=== PATIENT | female | born 1945 | race Caucasian/White ===

== ENCOUNTER 2020-04-24 07:46 | Emergency (ER) | payer MEDICARE ==
[2020-04-24 08:56] LABS: Absolute Lymphocytes (CBC) 3.1 K/uL (0.7-4.9); Basophils % 1.4 % (0-1.3); Hematocrit 39.2 % (36.0-45.0); Lymphocytes % 33.7 % (15.3-44.8); MPV 7.7 fL (7.6-11.3); RBC Red Blood Cell Count 4.36 M/uL (3.86-4.86)
[2020-04-24] MEDS ORDERED: ONDANSETRON 4 MG/2 ML VIAL ONE (09:17)
[2020-04-24] MEDS ORDERED: KETOROLAC 30 MG/ML INJ ONE (09:17)
[2020-04-24] MEDS ORDERED: dexAMETHasone 4 MG/ML VIAL ONE (09:17)
[2020-04-24 09:18] LABS: ALT/SGPT 21 U/L (12-78); AST/SGOT 18 U/L (15-37); Albumin 3.9 g/dL (3.4-5.0); Alkaline Phosphatase 90 U/L (45-117); BUN Blood Urea Nitrogen 14 mg/dL (7-18); Bicarbonate 27 mmol/L (21-32); Bilirubin Total 0.5 mg/dL (0.2-1.0); Glucose Level 99 mg/dL (74-106); Potassium 3.6 mmol/L (3.5-5.1); Protein, Total 8.4 g/dL (6.4-8.2); Sodium Level 141 mmol/L (136-145); Troponin I < 0.02 ng/mL (0.0-0.045)
[2020-04-24] MEDS ORDERED: NA CHLORIDE 0.9% 500 ML ONE (09:18)
--- NOTE | 2020-04-24 09:31 | ER ---
Nurse's Notes [facility] Name: Love Mooney Age: 74 yrs Sex: Female : 1945 Arrival Date: 04/24/2020 Time: 07:48 Bed 5 Private MD: Diagnosis: Dermatitis, unspecified;Pain in right shoulder;Strain of muscle and tendon of back wall of thorax;Strain of muscle and tendon of front wall of thorax Presentation: 04/24 07:54 Chief complaint: Patient states: multiple bites in scalp x 6 weeks. C/o itching and ss burning. R shoulder pain x 4 days. No known injury. Coronavirus screen: Client denies travel out of the [place] in the last 14 days. At this time, the client does not indicate any symptoms associated with coronavirus-19. Ebola Screen: Patient denies exposure to infectious person. Patient denies travel to an Ebola-affected area in the 21 days before illness onset. Initial Sepsis Screen: Does the patient meet any 2 criteria? No. Patient's initial sepsis screen is negative. Does the patient have a suspected source of infection? No. Patient's initial sepsis screen is negative. Risk Assessment: Do you want to hurt yourself or someone else? Patient reports no desire to harm self or others. Onset of symptoms was September 2019. 07:54 Method Of Arrival: Ambulatory ss 07:54 Acuity: ALESSIA 4 ss 08:57 Acuity: ALESSIA 3 iw Triage Assessment: 10:00 General: Appears in no apparent distress. Behavior is calm. iw 10:00 Pain: Complains of pain in posterior aspect of right shoulder and anterior aspect of iw right shoulder. Historical: - Allergies: 07:57 No Known Allergies; ss - Home Meds: 07:57 None [Active]; ss - PMHx: 07:57 None; ss - PSHx: 07:57 Cholecystectomy; Tubal ligation; ss - Immunization history:: Adult Immunizations up to date. - Social history:: Smoking status: Patient reports the use of cigarette tobacco products, smokes one-half pack cigarettes per day. - Family history:: not pertinent. Screenin:00 Abuse screen: Denies threats or abuse. Denies injuries from another. Nutritional iw screening: No deficits noted. Tuberculosis screening: No symptoms or risk factors identified. Fall Risk None identified. Assessment: 08:54 General: Appears in no apparent distress. Behavior is calm, cooperative. Pain: iw Complains of pain in right arm and anterior aspect of right shoulder and posterior aspect of right shoulder. Neuro: Level of Consciousness is awake, alert, obeys commands, Oriented to person, place, time, situation, Moves all extremities. Full function. Cardiovascular: Patient's skin is warm and dry. Respiratory: Respiratory effort is even, unlabored, Respiratory pattern is regular, symmetrical. Derm: Skin is intact, is healthy with good turgor. Musculoskeletal: Range of motion: intact in all extremities. 09:34 Reassessment: Patient appears in no apparent distress at this time. Patient and/or iw family updated on plan of care and expected duration. Pain level reassessed. Patient is alert, oriented x 3, equal unlabored respirations, skin warm/dry/pink. 10:25 Reassessment: Patient appears in no apparent distress at this time. Patient and/or iw family updated on plan of care and expected duration. Pain level reassessed. Patient is alert, oriented x 3, equal unlabored respirations, skin warm/dry/pink. pt appreciative of care Patient states feeling better. Vital Signs: 07:54 BP 151 / 99; Pulse 108; Resp 17; Pulse Ox 100% on R/A; Weight 61.23 kg; Height 5 ft. 3 ss in. (160.02 cm); Pain 7/10; 08:00 Temp 98.4(TE); ss 09:34 BP 150 / 85; Pulse 98; Resp 16; Pulse Ox 98% on R/A; iw 07:54 Body Mass Index 23.91 (61.23 kg, 160.02 cm) ED Course: 07:48 Patient arrived in ED. as 07:56 Triage completed. ss 07:57 Arm band placed on right wrist. ss 08:00 Jess Root, RN is Primary Nurse. iw 08:04 Maulik Carroll MD is Attending Physician. vick 08:10 Patient has correct armband on for positive identification. iw 08:50 Inserted saline lock: 22 gauge in left antecubital area, using aseptic technique. iw 09:28 Billy Bell MD is Referral Physician. vick 09:29 Cher Gonzalez MD is Referral Physician. vick 09:32 EKG done, by ED staff, reviewed by Maulik Carroll MD. vg1 10:27 No provider procedures requiring assistance completed. IV discontinued, intact, iw bleeding controlled, No redness/swelling at site. Pressure dressing applied. Administered Medications: 09:30 Drug: Zofran (Ondansetron) 4 mg Route: IVP; Site: left antecubital; iw 10:10 Follow up: Response: No adverse reaction iw 09:31 Drug: NS 0.9% 500 ml Route: IV; Rate: bolus; Site: left antecubital; iw 09:32 Drug: TORadol 30 mg Route: IVP; Site: left antecubital; iw 10:00 Follow up: Response: No adverse reaction iw 09:32 Drug: Decadron - Dexamethasone 10 mg Route: IVP; Site: left antecubital; iw 10:15 Follow up: Response: No adverse reaction iw Outcome: :31 Discharge ordered by . [facility] 10:27 Discharged to home ambulatory. iw 10:27 Condition: good 10:27 Discharge instructions given to patient, Instructed on discharge instructions, follow up and referral plans. medication usage, Demonstrated understanding of instructions, follow-up care, medications, Prescriptions given X 5 10:28 Patient left the ED. iw Signatures: Maulik Carroll MD MD cha Martinez, Amelia as Williams, Irene, SHEMAR RN Maira Elias, Tash Diaz RN RN RN vg1
--- NOTE | 2020-04-24 09:31 | EDPHYS ---
Physician Documentation [facility] Name: Love Mooney Age: 74 yrs Sex: Female : 1945 Arrival Date: 04/24/2020 Time: 07:48 Bed 5 Private MD: ED Physician Maulik Carroll HPI: 04/24 08:28 This 74 yrs old Female presents to ER via Ambulatory with complaints of vick Insect Bite, Shoulder Pain. 08:28 The patient or guardian complains of decreased range of motion, pain, that is acute. vick right shoulder and right trapezius. Context: The problem was sustained at an unknown site. Onset: The symptoms/episode began/occurred 3 day(s) ago. Modifying factors: the symptoms are alleviated by remaining still, The symptoms are aggravated by movement. Associated signs and symptoms: The patient has no apparent associated signs or symptoms. Severity of symptoms: At their worst the symptoms were mild, moderate, in the emergency department the symptoms are unchanged. Treatment prior to arrival includes: no previous treatment. The patient has experienced similar episodes in the past, a few times. Historical: - Allergies: 07:57 No Known Allergies; ss - Home Meds: 07:57 None [Active]; ss - PMHx: 07:57 None; ss - PSHx: 07:57 Cholecystectomy; Tubal ligation; ss - Immunization history:: Adult Immunizations up to date. - Social history:: Smoking status: Patient reports the use of cigarette tobacco products, smokes one-half pack cigarettes per day. - Family history:: not pertinent. ROS: 08:28 Constitutional: Negative for fever, chills, and weight loss, Eyes: Negative for injury, vick pain, redness, and discharge, ENT: Negative for injury, pain, and discharge, Neck: Negative for injury, pain, and swelling, Cardiovascular: Negative for chest pain, palpitations, and edema, Respiratory: Negative for shortness of breath, cough, wheezing, and pleuritic chest pain, Abdomen/GI: Negative for abdominal pain, nausea, vomiting, diarrhea, and constipation, Back: Negative for injury and pain, : Negative for injury, bleeding, discharge, and swelling, Skin: Negative for injury, rash, and discoloration, Neuro: Negative for headache, weakness, numbness, tingling, and seizure, Psych: Negative for depression, anxiety, suicide ideation, homicidal ideation, and hallucinations, Allergy/Immunology: Negative for hives, rash, and allergies, Endocrine: Negative for neck swelling, polydipsia, polyuria, polyphagia, and marked weight changes, Hematologic/Lymphatic: Negative for swollen nodes, abnormal bleeding, and unusual bruising. 08:28 MS/extremity: Positive for decreased range of motion, pain, tenderness, of the anterior aspect of right shoulder and posterior aspect of right shoulder. Exam: 08:28 Constitutional: This is a well developed, well nourished patient who is awake, alert, vick and in no acute distress. Head/Face: Normocephalic, atraumatic. Eyes: Pupils equal round and reactive to light, extra-ocular motions intact. Lids and lashes normal. Conjunctiva and sclera are non-icteric and not injected. Cornea within normal limits. Periorbital areas with no swelling, redness, or edema. ENT: Nares patent. No nasal discharge, no septal abnormalities noted. Tympanic membranes are normal and external auditory canals are clear. Oropharynx with no redness, swelling, or masses, exudates, or evidence of obstruction, uvula midline. Mucous membranes moist. Neck: Trachea midline, no thyromegaly or masses palpated, and no cervical lymphadenopathy. Supple, full range of motion without nuchal rigidity, or vertebral point tenderness. No Meningismus. Chest/axilla: Normal chest wall appearance and motion. Nontender with no deformity. No lesions are appreciated. Cardiovascular: Regular rate and rhythm with a normal S1 and S2. No gallops, murmurs, or rubs. Normal PMI, no JVD. No pulse deficits. Respiratory: Lungs have equal breath sounds bilaterally, clear to auscultation and percussion. No rales, rhonchi or wheezes noted. No increased work of breathing, no retractions or nasal flaring. Abdomen/GI: Soft, non-tender, with normal bowel sounds. No distension or tympany. No guarding or rebound. No evidence of tenderness throughout. Back: No spinal tenderness. No costovertebral tenderness. Full range of motion. Female : Normal external genitalia. Skin: Warm, dry with normal turgor. Normal color with no rashes, no lesions, and no evidence of cellulitis. Neuro: Awake and alert, GCS 15, oriented to person, place, time, and situation. Cranial nerves II-XII grossly intact. Motor strength 5/5 in all extremities. Sensory grossly intact. Cerebellar exam normal. Normal gait. Psych: Awake, alert, with orientation to person, place and time. Behavior, mood, and affect are within normal limits. 08:28 Musculoskeletal/extremity: ROM: limited active range of motion due to pain, limited passive range of motion due to pain, Circulation is intact in all extremities. Sensation intact. Compartment Syndrome exam of affected extremity: is normal. Joints: limited range of motion, painful range of motion, tenderness, DVT Exam: No signs of deep vein thrombosis. negative Homans' sign noted on exam, no appreciated bluish discoloration, no erythema, no increased warmth, pain, swelling, tenderness. 09:35 ECG was reviewed by the Attending Physician. [facility] Vital Signs: 07:54 BP 151 / 99; Pulse 108; Resp 17; Pulse Ox 100% on R/A; Weight 61.23 kg; Height 5 ft. 3 ss in. (160.02 cm); Pain 7/10; 08:00 Temp 98.4(TE); ss 09:34 BP 150 / 85; Pulse 98; Resp 16; Pulse Ox 98% on R/A; iw 07:54 Body Mass Index 23.91 (61.23 kg, 160.02 cm) MDM: 08:04 Patient medically screened. [facility] 08:42 Data reviewed: vital signs, nurses notes, lab test result(s), EKG, radiologic studies, [facility] plain films. Data interpreted: senior front end web developer: rate is 108 beats/min, Pulse oximetry: on room air is 100 %. Test interpretation: by ED physician or midlevel provider: ECG, plain radiologic studies. Counseling: I had a detailed discussion with the patient and/or guardian regarding: the historical points, exam findings, and any diagnostic results supporting the discharge/admit diagnosis, the presence of at least one elevated blood pressure reading (>120/80) during this emergency department visit, lab results. 09:21 Medication response: Toradol did not change the patient's pain, decadron. [facility] 04/24 08:27 Order name: CBC with Diff [facility] 04/24 08:27 Order name: Comprehensive Metabolic Panel [facility] 04/24 08:27 Order name: Troponin I [facility] 04/24 09:03 Order name: CBC with Automated Diff; Complete Time: 09:21 [facility] 04/24 09:18 Order name: Comprehensive Metabolic Panel; Complete Time: 09:21 [facility] 04/24 09:18 Order name: Troponin I; Complete Time: 09:21 [facility] 04/24 08:27 Order name: Shoulder Right (2 View) XRAY [facility] 04/24 08:27 Order name: Chest Pa And Lat (2 Views) XRAY [facility] 04/24 08:27 Order name: C Spine Ap/Lat XRAY [facility] 04/24 09:51 Order name: RAD [facility] 04/24 09:52 Order name: RAD [facility] 04/24 09:52 Order name: RAD [facility] 04/24 08:27 Order name: EKG; Complete Time: 08:27 [facility] 04/24 08:27 Order name: EKG - Nurse/Tech; Complete Time: 09:32 [facility] 04/24 09:22 Order name: Ice pack; Complete Time: 10:27 [facility] 04/24 09:22 Order name: Sling; Complete Time: 10:27 [facility] EC:35 Rate is 70 beats/min. Rhythm is regular. QRS [place] is Normal. [place] interval is normal. QRS vick interval is normal. QT interval is normal. No Q waves. T waves are Normal. No ST changes noted. Clinical impression: NSR w/ Non-specific ST/T Changes and No evidence of ischemia. Interpreted by me. Reviewed by me. Administered Medications: 09:30 Drug: Zofran (Ondansetron) 4 mg Route: IVP; Site: left antecubital; iw 10:10 Follow up: Response: No adverse reaction iw 09:31 Drug: NS 0.9% 500 ml Route: IV; Rate: bolus; Site: left antecubital; iw 09:32 Drug: TORadol 30 mg Route: IVP; Site: left antecubital; iw 10:00 Follow up: Response: No adverse reaction iw 09:32 Drug: Decadron - Dexamethasone 10 mg Route: IVP; Site: left antecubital; iw 10:15 Follow up: Response: No adverse reaction Disposition: 04/24/20 09:31 Discharged to Home. Impression: Dermatitis, unspecified, Pain in right shoulder, Strain of muscle and tendon of back wall of thorax, Strain of muscle and tendon of front wall of thorax. - Condition is Stable. - Discharge Instructions: Back Pain, Adult, Musculoskeletal Pain, Rash, Shoulder Pain, Cryotherapy, [id number], Shoulder Range of Motion Exercises, Back Pain, Adult, [id number], Rash, [id number], Cryotherapy. - Prescriptions for Benadryl 25 mg Oral Capsule - take 1 capsule by ORAL route every 6 hours As needed; 30 tablet. Tylenol- Codeine #3 300-30 mg Oral Tablet - take 2 tablet by ORAL route every 6 hours As needed; 30 tablet. Doxycycline Hyclate 100 mg Oral Tablet - take 1 tablet by ORAL route every 12 hours; 20 tablet. Medrol (Dank) 4 mg Oral Tablets, Dose Pack - take 1 tablet by ORAL route as directed - follow package instructions; 1 packet. Motrin IB 200 mg Oral Tablet - take 2 tablet by ORAL route every 6 hours As needed as needed with food; 30 tablet. - Medication Reconciliation Form, Thank You Letter, Antibiotic Education, Prescription Opioid Use form. - Follow up: Private Physician; When: 2 - 3 days; Reason: Recheck today's complaints, Continuance of care, Re-evaluation by your physician. Follow up: Billy Bell MD; When: 2 - 3 days; Reason: Recheck today's complaints, Re-evaluation by your physician. Follow up: Cher Gonzalez MD; When: 2 - 3 days; Reason: Recheck today's complaints, Re-evaluation by your physician. - Problem is new. - Symptoms have improved. Signatures: Dispatcher [employer] Maulik Walsh MD MD cha Williams, Irene, RN RN iw Smirch, Shelby, RN RN ss Corrections: (The following items were deleted from the chart) 10:28 09:31 04/24/2020 09:31 Discharged to Home. Impression: Dermatitis, unspecified; Pain in iw right shoulder; Strain of muscle and tendon of back wall of thorax; Strain of muscle and tendon of front wall of thorax. Condition is Stable. Forms are Medication Reconciliation Form, Thank You Letter, Antibiotic Education, Prescription Opioid Use. Follow up: Private Physician; When: 2 - 3 days; Reason: Recheck today's complaints, Continuance of care, Re-evaluation by your physician. Follow up: Billy Bell; When: 2 - 3 days; Reason: Recheck today's complaints, Re-evaluation by your physician. Follow up: Cher Gonzalez; When: 2 - 3 days; Reason: Recheck today's complaints, Re-evaluation by your physician. Problem is new. Symptoms have improved. vick
--- NOTE | 2020-04-24 09:50 | RAD REPORT ---
EXAM DESCRIPTION: RAD - Chest Pa And Lat (2 Views) - 04/24/2020 9:27 am CLINICAL HISTORY: PAIN COMPARISON: None TECHNIQUE: Frontal and lateral views of the chest were obtained. FINDINGS: The lungs are clear of focal mass or consolidation. No failure or volume overload. Patient has a mildly prominent interstitial pattern believed be baseline. Heart size is normal and central vasculature is within normal limits. No pleural effusion or pneumothorax seen. No acute bony findi ng noted. No aortic abnormality. IMPRESSION: No acute cardiopulmonary process.
--- NOTE | 2020-04-24 09:51 | RAD REPORT ---
EXAM DESCRIPTION: RAD - C Spine Ap/Lat - 04/24/2020 9:27 am CLINICAL HISTORY: PAIN COMPARISON: No comparisons FINDINGS: Cervical bodies are normal in height and alignment. No fracture or acute bony process seen . C5-6 and C6-7 disc space narrowing seen with posterior endplate spurring. The posterior spurring is more pronounced at C5-6. Mild facet joint degenerative changes are present. There is no prevertebral soft tissue thickening or other suspicious soft tissue finding. Bilateral carotid bulb calcifications. IMPRESSION: Degenerative disc and endplate changes C5-6 and C6-7. No acute cervical spine finding. Concerns for disc herniation, central canal abnormality or occult bone process can be addressed with follow-up outpatient MRI imaging of the cervical spine.
--- NOTE | 2020-04-24 09:51 | RAD REPORT ---
EXAM DESCRIPTION: Shoulder Right 2 View - 04/24/2020 9:27 am CLINICAL HISTORY: PAIN, nontraumatic but persistent COMPARISON: No comparisons TECHNIQUE: Internal and external rotation views of the right shoulder were obtained. FINDINGS: There is no fracture or dislocation. AC joint is normal in appearance. No acute or suspic ious findings. IMPRESSION: Negative two-view right shoulder examination.
[2020-04-24 10:55] VITALS: TEMP 98.4
[2020-04-24 10:56] VITALS: BP 150/85; O2SAT 98
--- NOTE | 2020-04-25 10:47 | EKG ---
Test Date: 2020-04-24 Test Time: 09:32:51 [place] Consultant: JARON MEASUREMENT RESULTS: Intervals: Rate: 70 DC: 164 QRSD: 70 QT: 386 QTc: 416 Maxwell: P: 33 DC: 164 QRS: 2 T: 7 INTERPRETIVE STATEMENTS: Sinus rhythm with fusion complexes Possible Inferior infarct, age undetermined Abnormal ECG No previous ECG available for comparison Electronically Signed On 04-25-20 10:45:05 CDT by Nirmal Dyer
== END 2020-04-24 10:28 | disposition home or self-care (01) ==
LOC: ER 07:46
DX: S29.012A Strain of muscle and tendon of back wall of thorax, initial encounter (principal); S29.011A Strain of muscle and tendon of front wall of thorax, initial encounter; L30.9 Dermatitis, unspecified; F17.210 Nicotine dependence, cigarettes, uncomplicated
CPT/HCPCS: 93005; 85025; 36415; 84484; 80053; 71046; 72040; 73030; 96375; 96374; 99284; J7040; J2405

== ENCOUNTER 2021-04-24 08:41 | Emergency (ER) | payer MEDICARE, OTHER ==
--- NOTE | 2021-04-24 09:30 | RAD REPORT ---
EXAM DESCRIPTION: US - Extremity Venous Uni Ltd - 04/24/2021 9:09 am CLINICAL HISTORY: PAIN COMPARISON: None. TECHNIQUE: Real-time sonographic evaluation of the left lower extremity deep venous system was perfo rmed. FINDINGS: Normal compressibility, flow augmentation, phasic flow and spontaneous flow are identified in the left lower extremity common femoral, superficial femoral, popliteal and posterior tibial vein s. No intraluminal filling defects seen. IMPRESSION: No DVT in the left lower extremity.
--- NOTE | 2021-04-24 09:58 | RAD REPORT ---
EXAM DESCRIPTION: RAD - Knee Left 3 View - 04/24/2021 9:52 am CLINICAL HISTORY: PAIN COMPARISON: No comparisons FINDINGS: No fracture, dislocation or periosteal reaction.Small joint effusion is present. Spurring is seen along the tibial spine with minimal spurring along the medial and lateral compartments. Spurr ing is seen along the superior articular margin of the patella. No joint space narrowing. No soft tis santino abnormality. IMPRESSION: Knee joint degenerative spurring changes and small joint effusion. No acute bone finding . Clinical concerns for internal derangement or occult bony injury could be further assessed with MR im aging.
--- NOTE | 2021-04-24 10:06 | EDPHYS ---
Physician Documentation [facility] Name: Love Mooney Age: 75 yrs Sex: Female : 1945 Arrival Date: 04/24/2021 Time: 08:43 Bed 11 Private MD: ED Physician Maulik Carroll HPI: 04/24 09:29 This 75 yrs old Female presents to ER via Ambulatory with complaints of Knee kb Pain. 09:29 The patient presents with pain, that is acute. The patient has not recently seen a kb physician. 09:30 The complaints affect the left knee. Context: The problem was sustained at home, kb resulted from an unknown cause, the patient can fully bear weight, the patient is able to ambulate, Problem is a result from a previous injury: No. Onset: The symptoms/episode began/occurred 4 day(s) ago. Modifying factors: The symptoms are alleviated by nothing. the symptoms are aggravated by nothing. Associated signs and symptoms: Pertinent positives: calf tenderness, Pertinent negatives fever, nausea, numbness, rash, swelling, tingling, vomiting, warmth, weakness. Treatment prior to arrival includes: no previous treatment. Severity of symptoms: At their worst the symptoms were moderate, in the emergency department the symptoms are unchanged. The patient has not experienced similar symptoms in the past. Historical: - Allergies: 08:47 No Known Allergies; jl7 - Home Meds: 08:47 Boyce Oral [Active]; jl7 - PMHx: 08:47 Chronic back pain; jl7 - PSHx: 08:47 Cholecystectomy; jl7 - Immunization history:: Adult Immunizations up to date, Client reports receiving the Dawson \T\ Dawson single-dose vaccine. - Social history:: Smoking status: Patient reports the use of cigarette tobacco products, smokes one-half pack cigarettes per day. ROS: 09:27 Constitutional: Negative for fever, chills, and weight loss. kb 09:27 MS/extremity: Positive for pain, tenderness, of the left knee. 09:27 All other systems are negative. Exam: 09:27 Constitutional: This is a well developed, well nourished patient who is awake, alert, kb and in no acute distress. Head/Face: Normocephalic, atraumatic. ENT: Moist Mucous membranes Respiratory: Respirations even and unlabored. No increased work of breathing, no retractions or nasal flaring. Skin: Warm, dry with normal turgor. Normal color. Neuro: Awake and alert, GCS 15, oriented to person, place, time, and situation. Moves all extremities. Normal gait. Psych: Awake, alert, with orientation to person, place and time. Behavior, mood, and affect are within normal limits. 09:27 Musculoskeletal/extremity: Extremities: grossly normal except: noted in the left knee: pain, noted in the left calf: tenderness, ROM: intact in all extremities, Circulation is intact in all extremities. Sensation intact. Vital Signs: 08:45 BP 132 / 76; Pulse 93; Resp 17; Temp 98.3; Pulse Ox 98% ; jl7 10:03 Pulse Ox 99% on R/A; Pain 5/10; ap3 MDM: 08:48 Patient medically screened. kb 09:28 Data reviewed: vital signs, nurses notes. Data interpreted: Pulse oximetry: on room air kb is 98 %. Interpretation: acceptable. 10:05 Counseling: I had a detailed discussion with the patient and/or guardian regarding: the kb historical points, exam findings, and any diagnostic results supporting the discharge/admit diagnosis, radiology results, the need for outpatient follow up, a orthopedic surgeon, to return to the emergency department if symptoms worsen or persist or if there are any questions or concerns that arise at home. 04/24 08:48 Order name: Knee Left 3 View XRAY; Complete Time: 10:05 kb 04/24 08:48 Order name: US Extremity Venous Unilateral Ltd; Complete Time: 09:46 kb 04/24 10:06 Order name: Armnai Wrap; Complete Time: 10:12 kb Administered Medications: No medications were administered Disposition Summary: 04/24/21 10:05 Discharge Ordered Location: Home kb Condition: Stable kb Diagnosis - Pain in left knee kb Followup: kb - With: Emergency Department - When: As needed - Reason: Worsening of condition Followup: kb - With: Private Physician - When: 2 - 3 days - Reason: Recheck today's complaints, Continuance of care, Re-evaluation by your physician Discharge Instructions: - Discharge Summary Sheet kb - Acute Knee Pain, Adult, [id number] kb Forms: - Medication Reconciliation Form kb - Thank You Letter kb - Antibiotic Education kb - Prescription Opioid Use kb Prescriptions: - Diclofenac Sodium 75 mg Oral tablet,delayed release (DR/EC) - take 1 tablet by ORAL route 2 times per day As needed; 30 tablet; Refills: 0, kb Product Selection Permitted Addendum: 04/26/2021 10:55 Co-signature as Attending Physician, Maulik Carroll MD I agree with the assessment and c [place] plan of care. Signatures: Dispatcher [employer] Rachell Hussein, SETTLEMENT PROCESSOR-C SETTLEMENT PROCESSOR-Maulik Grigsby MD MD cha Leal, Jahala, RN RN jl7 Corrections: (The following items were deleted from the chart) 04/24 08:47 08:45 Social history: Smoking status: jl7 jl7 08:49 08:47 Immunization history: Adult Immunizations up to date, Client reports receiving jl7 the 1st dose of the Covid vaccine, jl7
--- NOTE | 2021-04-24 10:06 | ER ---
Nurse's Notes [facility] Name: Love Mooney Age: 75 yrs Sex: Female : 1945 Arrival Date: 04/24/2021 Time: 08:43 Bed 11 Private MD: Diagnosis: Pain in left knee Presentation: 04/24 08:45 Chief complaint: Patient states: Left knee pain x 4 days, denies trauma. Coronavirus jl7 screen: At this time, the client does not indicate any symptoms associated with coronavirus-19. Ebola Screen: No symptoms or risks identified at this time. Initial Sepsis Screen: Does the patient meet any 2 criteria? No. Patient's initial sepsis screen is negative. Does the patient have a suspected source of infection? No. Patient's initial sepsis screen is negative. Risk Assessment: Do you want to hurt yourself or someone else? Patient reports no desire to harm self or others. Onset of symptoms was April 20, 2021. 08:45 Method Of Arrival: Ambulatory jl7 08:45 Acuity: ALESSIA 4 jl7 Triage Assessment: 08:47 General: Appears in no apparent distress. uncomfortable, Behavior is calm, cooperative, jl7 appropriate for age. Pain: Complains of pain in left knee Pain currently is 8 out of 10 on a pain scale. Historical: - Allergies: 08:47 No Known Allergies; jl7 - Home Meds: 08:47 Buckley Oral [Active]; jl7 - PMHx: 08:47 Chronic back pain; jl7 - PSHx: 08:47 Cholecystectomy; jl7 - Immunization history:: Adult Immunizations up to date, Client reports receiving the Dawson \T\ Dawson single-dose vaccine. - Social history:: Smoking status: Patient reports the use of cigarette tobacco products, smokes one-half pack cigarettes per day. Screenin:56 Abuse screen: Denies threats or abuse. Nutritional screening: No deficits noted. ap3 Tuberculosis screening: No symptoms or risk factors identified. 09:59 Fall Risk No fall in past 12 months (0 pts). Secondary diagnosis (15 points) impaired ap3 mobility, No IV (0 pts). Ambulatory Aid- Crutches/Cane/Walker (15 pts). Gait- Normal/Bed Rest/Wheelchair (0 pts) Mental Status- Oriented to own ability (0 pts). Total Dietrich Fall Scale indicates Low Risk Score (25-44 pts). Fall prevention measures have been instituted. Placed close to Nursing Station Frequent Obs/Assesments occuring As available Patient and Family Educated on Fall Prevention Program and strategies. Assessment: 09:58 General: Appears in no apparent distress. comfortable. Pain: Complains of pain in left ap3 knee Pain radiates to left leg. Neuro: Level of Consciousness is awake, alert, obeys commands, Oriented to person, place, time, situation, Appropriate for age Architectural Renderer are equal bilaterally Moves all extremities. Speech is normal. Cardiovascular: Capillary refill < 3 seconds Patient's skin is warm and dry. Respiratory: Airway is patent Respiratory effort is even, unlabored, Respiratory pattern is regular, symmetrical. Vital Signs: 08:45 BP 132 / 76; Pulse 93; Resp 17; Temp 98.3; Pulse Ox 98% ; jl7 10:03 Pulse Ox 99% on R/A; Pain 5/10; ap3 ED Course: 08:43 Patient arrived in ED. jl7 08:46 [facility] Ortiz [facility]C [facility] kb 08:46 Maulik Carroll MD is Attending Physician. kb 08:47 Triage completed. jl7 08:47 Arm band placed on right wrist. jl7 08:55 Leda Vences, SHEMAR is Primary Nurse. ap3 08:57 Patient has correct armband on for positive identification. Call light in reach. Door ap3 closed. Noise minimized. 09:09 US Extremity Venous Unilateral Ltd In Process Unspecified. EDMS 09:52 Knee Left 3 View XRAY In Process Unspecified. EDMS 10:12 No provider procedures requiring assistance completed. Patient did not have IV access ap3 during this emergency room visit. Administered Medications: No medications were administered Outcome: 10:05 Discharge ordered by . kb 10:13 Discharged to home ambulatory. ap3 10:13 Condition: good 10:13 Discharge instructions given to patient, Instructed on discharge instructions, follow up and referral plans. medication usage, Demonstrated understanding of instructions, follow-up care, medications, Prescriptions given X 1. 10:13 Patient left the ED. ap3 Signatures: Dispatcher [employer] EDMS Rachell Ortiz FNP-C FNP-Ckb Leal, Jahala, RN RN jl7 Prokisch, Leda, RN RN ap3 Corrections: (The following items were deleted from the chart) 08:47 08:45 Social history: Smoking status: [email or web address] 08:49 08:47 Immunization history: Adult Immunizations up to date, Client reports receiving jl the 1st dose of the Covid vaccine,
[2021-04-24 12:14] VITALS: BP 132/76; TEMP 98.3
[2021-04-24 12:15] VITALS: O2SAT 99
== END 2021-04-24 10:13 | disposition home or self-care (01) ==
LOC: ER 08:41
DX: M25.562 Pain in left knee (principal); F17.210 Nicotine dependence, cigarettes, uncomplicated
CPT/HCPCS: 93971; 99283